=== PATIENT | male | born 1995 | race Hispanic/Latino ===

== ENCOUNTER 2018-02-25 06:11 | Day surgery (SDC) | payer OTHER ==
[2018-02-25] MEDS ORDERED: NACL BACTERIOSTATIC INFILTRATI ONE (06:51)
[2018-02-25] MEDS ORDERED: GELFOAM TP ONE ×3 (07:15→11:46)
[2018-02-25] MEDS ORDERED: FLOXIN OTIC ONE ×2 (07:15→11:46)
[2018-02-25] MEDS ORDERED: ADRENALIN ONE (07:16)
[2018-02-25] MEDS ORDERED: DILAUDID ONE (07:33)
[2018-02-25] MEDS ORDERED: SUBLIMAZE ONE ×2 (07:33→10:15)
[2018-02-25] MEDS ORDERED: DIPRIVAN 10 MG/ML IV ONE ×2 (07:33→08:24)
[2018-02-25] MEDS ORDERED: XYLOCAINE MPF 2% ONE (07:34)
[2018-02-25] MEDS ORDERED: ZEMURON IV ONE (07:34)
[2018-02-25] MEDS: LACTATED RINGERS 1,000 ML IV SCH ×2 (07:50→13:26)
[2018-02-25] MEDS ORDERED: TRANSDERM-SCOP TD NR (08:00)
[2018-02-25] MEDS ORDERED: TORADOL IV PRN (08:04)
[2018-02-25] MEDS ORDERED: NARCAN 0.4 MG/1 ML IV PRN (08:04)
[2018-02-25] MEDS ORDERED: DILAUDID IV PRN ×2 (08:04)
[2018-02-25] MEDS ORDERED: DEMEROL IV PRN (08:04)
[2018-02-25] MEDS ORDERED: ZOFRAN IV PRN (08:04)
--- NOTE | 2018-02-25 08:04 | Anesthesia Day of Surgery ---
Anesthesia Day of Surgery - Day of Surgery Patient Examined: Yes Patient H&P Reviewed: Yes Patient is NPO: Yes
--- NOTE | 2018-02-25 08:04 | Anesthesia Consultation ---
Anesthesia Consult and Med Hx Date of service: 02/25/18 - Airway Anesthetic Teeth Evaluation: Good ROM Head & Neck: Adequate Mental/Hyoid Distance: Adequate Mallampati Class: Class I Intubation Access Assessment: Good - Pulmonary Exam CTA: Yes - Cardiac Exam Cardiac Exam: No Murmur - Pre-Operative Health Status ASA Pre-Surgery Classification: ASA2 Proposed Anesthetic Plan: General - Pulmonary Hx Smoking: Yes - Central Nervous System Hx Psychiatric Problems: No - Other Systems Hx Alcohol Use: Yes (occas) Hx Cancer: No
[2018-02-25] MEDS ORDERED: VERSED ONE (08:12)
[2018-02-25] MEDS ORDERED: XYLOCAINE 2% INFILTRATI ONE (08:15)
[2018-02-25] MEDS ORDERED: ADRENALIN IV ONE ×2 (08:15→09:21)
[2018-02-25] MEDS ORDERED: DECADRON ONE (08:35)
[2018-02-25] MEDS ORDERED: ePHEDrine 50 MG/5 ML-0.9% NACL IV ONE (08:41)
[2018-02-25] MEDS ORDERED: ANCEF/STERILE WATER 2 GM/20 ML IV NR (09:00)
[2018-02-25] MEDS ORDERED: FLOXIN OTIC AS ONE ×2 (09:21)
[2018-02-25] MEDS ORDERED: NACL 0.9% IR ONE ×3 (09:21→09:52)
[2018-02-25] MEDS ORDERED: XYLOCAINE 2%/ EPI 1:50,000 (DENTAL) INFILTRATI ONE (09:22)
[2018-02-25] MEDS ORDERED: WATER FOR IRRIG STERILE IR ONE (09:23)
[2018-02-25] MEDS ORDERED: ANTIBIOTIC OINT TP ONE ×2 (11:07→11:12)
[2018-02-25] MEDS ORDERED: ZOFRAN ONE ×2 (12:32)
[2018-02-25] MEDS ORDERED: BLOXIVERZ ONE (12:34)
[2018-02-25] MEDS ORDERED: ROBINUL ONE (12:34)
--- NOTE | 2018-02-25 12:45 | Short Stay Summary ---
Short Stay Documentation Date of service: 02/25/18 - Allergies and Medications Current Medications: Allergies No Known Allergies Allergy (Verified 02/25/18 06:53) Home Medications Medication Instructions Recorded Confirmed Last Taken Type Guaifen/Phenyleph/Acetaminophn 1 each PO PRN PRN 02/15/18 02/25/18 02/22/18 History [Tylenol Cold Head Congest Cplt] Active Medications Hydromorphone HCl (Dilaudid) 0.25 mg IV Q10MIN PRN PRN Reason: Pain, Moderate (4-6) Stop: 02/25/18 13:00 Hydromorphone HCl (Dilaudid) 0.5 mg IV Q10MIN PRN PRN Reason: Pain , Severe (7-10) Stop: 02/25/18 13:00 Lactated Ringer's (Lactated Ringers) 1,000 mls @ 75 mls/hr IV DIRECT KATELIN Last Admin: 02/25/18 07:50 Dose: 75 mls/hr Ketorolac Tromethamine (Toradol) 30 mg IV ONCE PRN PRN Reason: Pain, Moderate (4-6) Stop: 02/25/18 13:00 Meperidine HCl (Demerol) 25 mg IV ONCE PRN PRN Reason: Shivering Stop: 02/25/18 13:00 Naloxone HCl (Narcan 0.4 Mg/1 Ml) 0.1 mg IV Q2MIN PRN PRN Reason: Res Rate </= 8 or 02 SAT < 92% Ondansetron HCl (Zofran) 4 mg IV ONCE PRN PRN Reason: Nausea And Vomiting Stop: 02/25/18 13:00 Scopolamine (Transderm-Scop) 1 each TD PREOP NR Stop: 02/25/18 23:59 Last Admin: 02/25/18 07:55 Dose: 1 each - Brief post op/procedure progress note Date of procedure: 02/25/18 Pre-op diagnosis: 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 Left tymnpanoplasty with canal wall down mastoidectomy 2. Microdissection using the operating microscope 3. Monitoring of the facial nerve for 1 hour Anesthesia: GETA Findings: Mastoid portion of cholesteatoma has erroded posterior canal wall and extended into the external auditory canal. Facial nerve in typanic segment was not dehiscent. Head of stapes was still covered with portion of plastipore partial ossicular prosthesis. Surgeon: PARISH BIRMINGHAM Estimated blood loss: minimal Pathology: list (Cholesteatoma was sent to Pathology lab) Specimen disposition: to lab Condition: stable - Disposition Condition at discharge: Good Disposition: - TO HOME OR SELFCARE Short Stay Discharge Plan Activity: advance as tolerated Wound: per your surgeon's advice Follow up with: PARISH BIRMINGHAM MD [Staff Physician] - 48 Hours Prescriptions: HYDROcodone/APAP 7.5-325 [Weld 7.5/325] 1 each PO Q8HR PRN #10 tablet PRN Reason: Pain Promethazine [Phenergan TAB] 12.5 mg PO Q8HR PRN #7 tab PRN Reason: Nausea
[2018-02-25] MEDS ORDERED: NORCO 7.5/325 PO PRN (13:23)
--- NOTE | 2018-02-25 13:46 | Operative Report ---
PRINCIPAL DIAGNOSES: Left middle ear and mastoid cholesteatoma, large. PRINCIPAL SURGICAL PROCEDURE: 1. Left tympanoplasty with canal wall down mastoidectomy, with excision of a large cholesteatoma and meatoplasty. 2. Microdissection using the operating microscope. 3. Monitoring of facial nerve. SURGEON: Gideon Oden MD ANESTHESIA: General endotracheal. COMPLICATIONS: None. SPECIMENS: Cholesteatoma was submitted to pathology for permanent sectioning. ESTIMATED BLOOD LOSS: Less than 10 mL of blood. INDICATION FOR SURGERY: The patient is a 22-year-old male who more than 10 years ago had tympanoplasty and excision of middle ear cholesteatoma. He has not had any problems for again more than 10 years, but the last 3 months, there was some drainage of the left ear and he presented for evaluation. There was a mass in the middle ear. CT scan demonstrated large mass expanding from the mastoid and eroding the posterior bony ear canal protruding into the external ear canal. We suspected cholesteatoma and tympanoplasty and mastoidectomy, canal wall down were recommended. DESCRIPTION OF PROCEDURE: The patient was taken to the operating room and placed on the operative table in supine position. After satisfactory plane of general endotracheal anesthesia was achieved, the head was gently turned to the right side exposing the left ear. Betadine was used to clean the retroauricular area and meatus. A total of 3.6 mL 2% Xylocaine 1:50,000 epinephrine were injected into the lateral aspect of external ear canal into the retroauricular area in the top of the ear as well as meatal area. Ear was then prepped and draped in usual manner. Electrodes for monitoring of facial nerve were inserted. Some hair was shaved on top of the ear because we needed to extend the incision high in the scalp to get the fascia. Surgical procedure started making a retroauricular skin incision through the skin and subcutaneous tissue to the plane of temporalis muscle superiorly and periosteum covering inferiorly. Bleeding was stopped using Bovie cautery. We then extended incision straight up into the scalp for approximately 2 cm from the top of the ear, identified the fascia, harvested the fascia, placed on fascia press and cauterized the donor site. We sutured the subcutaneous layer of the distal portion of the incision and positioned self-retaining retractor, made 2 incisions in the periosteum as well as one incision along the temporal line, second incision perpendicular towards mastoid tip. Periosteal flap was elevated over the mastoid cortex to identify the posterior bony canal wall, skin line in posterior canal was elevated and incised with 11 blade from 6-12 o'clock, 5 mm medial from the mastoid cortex and self-retaining retractors were inserted. The mastoidectomy was initiated with 6 mm cutting shagufta until antrum was identified including the cholesteatoma and then we switched to a smaller cutting shagufta. The middle fossa dura and sigmoid sinus were skeletonized, initially lateral aspect of the posterior canal was preserved, but then we took it down and only after that, we were able to remove the cholesteatoma from the mastoid and external ear canal and then we continued medially, elevated the tympanomeatal flap after making two incisions in the external auditory canal medially. One was placed position at 6 o'clock and second one at 10 o'clock and then we completed the canal wall down mastoidectomy by removing the medial aspect of the posterior canal wall with a 4 mm and 3 mm genaro burs. The facial nerve was only skeletonized and the superior portion of the mastoid segment. In terms of ossicles, incus was missing, head of the stapes was fused to the tegmen of the attic. There were adhesions between the tympanic membrane and the stapes. We then identified there was a partial ossicular replacement prosthesis used in the past and the portion that was firmly attached to stapes was left on the stapes head where the head was cut and removed. Then, the tensor tympani muscle was cut to get more mobility and once the entire cholesteatoma was removed, we placed pledgets in the middle ear and initiate meatoplasty. Generous amount of conchal cartilage with soft tissue were removed. A wide incision was made in the meatal skin and then inferior flap was sutured to periosteum covering mastoid tip. Superior flap to the anterior margin of the temporalis muscle and lateral triangular flap to the perichondrium covering the rest of the conchal cartilage. We then removed the pledgets, suctioned the blood, placed the fascia medial to the tympanic membrane as an underlay graft, supported from within middle ear with dry pieces of Gelfoam. We placed a piece of conchal cartilage over the head of the stapes and then laid tympanomeatal flap and fascia over the cartilage graft covering the stapes over the tympanic and mastoid segment of the facial nerve to a lateral semicircular canal and then packed the entire cavity moist Gelfoam soaked with ciprofloxacin. Self-retaining retractors were removed. A 4-0 Vicryl was used to close the subcutaneous layer of skin incision and 5-0 fast-absorbing gut was used to close the skin incision in the running locking manner. Mastoid dressing was applied. Prior to that, we placed Xeroform gauze in the meatus, gauze was impregnated with bacitracin ointment to serve as a stent. No drains were placed. Mastoid dressing was applied. Following completion of the surgical procedure, the patient was extubated in the operating room and then transferred to recovery room in stable satisfactory condition. JOB# [id number] SILAS/NAVJOT
--- NOTE | 2018-02-25 14:06 | Post Anesthesia Evaluation ---
- Post Anesthesia Evaluation Patient Participated: Yes Airway Patent: Yes Stable Respiratory Function: Yes Nausea/Vomiting: No Temp > 96.8F: Yes Pain Manageable: Yes Adequeate Hydration: Yes Anesthesia Complications: No
[2018-02-25 15:12] VITALS: BP 122/69
== END 2018-02-25 15:05 | disposition home or self-care (01) ==
LOC: OR 06:11
PROVIDERS: ATTEND Otolaryngology Sleep Medicine
DX: H71.22 Cholesteatoma of mastoid, left ear (principal); F17.200 Nicotine dependence, unspecified, uncomplicated
CPT/HCPCS: 69644; 88304; 95867; A4217; A4649; J0171; J0690; J1100; J1170; J1885; J2250; J2405; J2704; J2710; J3010; J7120